=== PATIENT | male | born 1965 | race Caucasian/White ===

== ENCOUNTER 2018-10-05 14:45 | Observation (INO) | payer OTHER, SELFPAY ==
[2018-10-05] VITALS (8 sets, daily range): BP systolic 127–144; BP diastolic 63–84; PULSE 90–105; RESP 15–22; TEMP 37.2–39.1; O2SAT 99–100; BMI 30.8; BMI 31.6
--- NOTE | 2018-10-05 | DI.RAD.S_ITS ---
PROCEDURE: XR CHEST 2V INDICATIONS: Fever TECHNIQUE: 2 views of the chest were acquired. COMPARISON: None. FINDINGS: Surgical changes and devices: None. Lungs and pleura: No pleural effusions or pneumothorax. Lungs are clear. Mediastinum: Mediastinal contours are normal. Heart size is normal. Bones and chest wall: No suspicious bony abnormalities. Soft tissues appear unremarkable. IMPRESSION: 1. No acute cardiopulmonary disease. Dictated by: Hong Lugo M.D. on 10/05/2018 at 21:24 Approved by: Hong Lugo M.D. on 10/05/2018 at 21:24
[2018-10-05] MEDS: SODIUM CHLORIDE 0.9% 1,000 ML 1000 ML IV ×3 (15:09→17:27)
[2018-10-05] MEDS: ONDANSETRON 4 MG/2 ML INJ IV ×3 (15:09→22:27)
[2018-10-05 15:22] LABS: Alanine Aminotransferase 25 IU/L (21-72); Albumin 4.9 g/dL (3.5-5.0); Albumin Globulin Ratio 1.8 (1.0-2.8); Alkaline Phosphatase 48 U/L (38-126); Aspartate Aminotransferase 35 IU/L (17-59); BUN Creatinine Ratio 16.7 (6-22); Bilirubin Total 1.2 mg/dL (0.2-1.3); Blood Urea Nitrogen 15 mg/dL (9-20); Calcium 9.5 mg/dL (8.4-10.2); Carbon Dioxide 23 mmol/L (22-32); Chloride 96 mmol/L (98-107); Estimated Glomerular Filt Rate > 60.0 mL/min (>60); Globulin 2.7 g/dL (1.7-4.1); Glucose 162 mg/dL (70-100); HEMOLYSIS 18 (0-50); Potassium 3.8 mmol/L (3.4-5.1); Sodium 137 mmol/L (137-145); Total Protein 7.6 g/dL (6.3-8.2)
[2018-10-05 15:25] LABS: Eosinophils Percent Auto 0.1 % (2-4)
--- NOTE | 2018-10-05 16:04 | ED_ITS ---
HPI - Nausea/Vomiting/Diarrhea General Chief complaint: Nausea/Vomiting/Diarrhea Stated complaint: thinks Flu Time Seen by Provider: 10/05/18 15:49 Source: patient Mode of arrival: ambulatory Limitations: no limitations History of Present Illness HPI Narrative: Patient is a 53-year-old male who presents with nausea vomiting diarrhea. He says it has been ongoing for last 18 hr. He cannot hold anything down. He is febrile tachycardic here in the ED. His grandson and someone else also has the same symptoms however they did not get as bad. He denies any recent traveling no bloody diarrhea or hematemesis. Patient also on methadone 3 times a day for pain control. He has not been able to keep any medications down for the last day or so. He was also little dizzy and lightheaded just overall not feeling well. Body aches. MD complaint: nausea, vomiting, diarrhea and abdominal pain Related Data Home Medications Medication Instructions Recorded Confirmed hydrochlorothiazide 12.5 mg PO DAILY 10/05/18 10/05/18 lisinopril 20 mg PO DAILY 10/05/18 10/05/18 methadone 20 mg PO Q6H 10/05/18 10/05/18 verapamil 180 mg PO DAILY 10/05/18 10/05/18 Allergies Allergy/AdvReac Type Severity Reaction Status Date / Time No Known Drug Allergies Allergy Verified 10/05/18 14:52 Review of Systems Review of Systems GENERAL: + fever, +body aches HEENT: Denies sinus pain, ear pain, sore throat, difficulty swallowing, neck pain RESPIRATORY: Denies dyspnea, cough, wheezing, hemoptysis, sputum. CARDIOVASCULAR: Denies chest pain, palpitations, orthopnea, edema GASTROINTESTINAL: See HPI. : Denies dysuria, frequency, incontinence, hematuria, urinary retention, flank pain. MUSCULOSKELETAL: Denies weakness, joint pain, or bony pain SKIN: No rash, no erythema, no pruritus NEUROLOGIC: Denies weakness, dizziness, headache, numbness, change in speech, confusion PSYCHIATRIC: No concerning psychosocial issues. 12 point review of systems is negative except for those stated above and HPI PFSH Medical History Chronic pain (Acute) Hypertension (Acute) Social History Smoking Status: Former smoker Exam Initial Vital Signs Initial Vital Signs: Vital Signs Temperature 102.3 F H 10/05/18 14:48 Pulse Rate 105 H 12/09/18 14:48 Respiratory Rate 22 10/05/18 14:48 Blood Pressure 137/84 10/05/18 14:48 Pulse Oximetry 100 10/05/18 14:48 GENERAL: Appears ill HEENT: Head atraumatic,EOMI, pupils reactive dry mucous membranes CARDIOVASCULAR: Regular rate and rhythm without murmurs, rubs or gallops. RESPIRATORY: Breath sounds equal bilaterally, no wheezes rales or rhonchi. ABDOMEN: Soft, nontender. Normoactive bowel sounds all 4 quadrants. No guarding or rebound. EXTREMITIES: Normal range of motion, no clubbing or edema. Neurovascularly intact NEUROLOGICAL: Alert and oriented x4.Normal gait and speech. Cranial nerves II through XII grossly intact. SKIN: Warm, dry, no laceration, no petechiae, no rashes or lesions. Course Orders Ordered: ED Orders 10/05/18 15:00 Blood Culture Stat Comprehensive Metabolic Panel Stat Lipase Stat 10/05/18 15:33 Influenza A and B by PCR Rapid Stat 10/05/18 17:04 Complete Blood Count AUTO DIFF Stat 10/05/18 17:05 Lactate (Lactic Acid) Stat 10/05/18 18:52 GI Panel Stat Sodium Chloride (Normal Saline 0.9%) 1,000 mls @ 1,000 mls/hr IV BOLUS PRN PRN Reason: Fluid replacement Last Infusion: 10/05/18 18:34 Dose: 0 mls/hr Admin: 10/05/18 17:27 Dose: 1,000 mls/hr Discontinued Medications Hydromorphone HCl (Dilaudid) 1 mg IV NOW ONE Stop: 10/05/18 16:39 Last Admin: 10/05/18 16:44 Dose: 1 mg Sodium Chloride (Normal Saline 0.9%) 1,000 mls @ 1,000 mls/hr IV BOLUS ONE Stop: 10/05/18 16:07 Last Infusion: 10/05/18 16:18 Dose: 0 mls/hr Admin: 10/05/18 15:09 Dose: 1,000 mls/hr Sodium Chloride (Normal Saline 0.9%) 1,000 mls @ 1,000 mls/hr IV BOLUS ONE Stop: 10/05/18 16:56 Last Infusion: 10/05/18 17:18 Dose: 0 mls/hr Admin: 10/05/18 16:11 Dose: 1,000 mls/hr Lactated Ringer's (Lactated Ringers) 1,000 mls @ 1,000 mls/hr IV BOLUS ONE Stop: 10/05/18 18:32 Last Infusion: 10/05/18 18:38 Dose: 0 mls/hr Admin: 10/05/18 17:40 Dose: 1,000 mls/hr Ketorolac Tromethamine (Toradol) 30 mg IV NOW ONE Stop: 10/05/18 15:58 Last Admin: 10/05/18 16:10 Dose: 30 mg Metoclopramide HCl (Reglan) 10 mg IV NOW ONE Stop: 10/05/18 17:35 Last Admin: 10/05/18 17:40 Dose: 10 mg Morphine Sulfate (Morphine) 4 mg IV NOW ONE Stop: 10/05/18 15:58 Last Admin: 10/05/18 16:10 Dose: 4 mg Ondansetron HCl (Zofran) 4 mg IV NOW ONE Stop: 10/05/18 15:08 Last Admin: 10/05/18 15:09 Dose: 4 mg Ondansetron HCl (Zofran) 4 mg IV NOW ONE Stop: 10/05/18 16:07 Last Admin: 10/05/18 16:10 Dose: 4 mg Pantoprazole Sodium (Protonix) 40 mg IV NOW ONE Stop: 10/05/18 15:58 Last Admin: 10/05/18 16:10 Dose: 40 mg Vital Signs - 8 hr 10/05/18 14:48 10/05/18 15:30 10/05/18 16:30 Temperature 102.3 F H Pulse Rate 105 H 97 H 95 H Respiratory Rate 22 Blood Pressure 137/84 Blood Pressure [Left Arm] 136/65 127/70 Pulse Oximetry 100 100 100 10/05/18 17:10 10/05/18 17:11 10/05/18 18:00 Temperature 99.0 F 99.0 F Pulse Rate 94 H 91 H Respiratory Rate 15 Blood Pressure Blood Pressure [Left Arm] 127/70 128/63 Pulse Oximetry 100 10/05/18 19:02 Temperature Pulse Rate 90 Respiratory Rate 20 Blood Pressure 128/65 Blood Pressure [Left Arm] Pulse Oximetry 100 MDM - Nausea/Vomiting/Diarrhea Lab Data Attestation: I reviewed the patient's lab results. Result diagrams: 10/05/18 17:04 10/05/18 15:00 Lab Results 10/05/18 10/05/18 10/05/18 Range/Units 15:00 15:00 15:33 WBC (4.5-11.0) X10^3/uL RBC (4.5-5.9) X10^6/uL Hgb (13.5-17.5) g/dL Hct (41-53) % MCV (80-100) fL MCH (26-34) PG MCHC (30-36) % RDW (11.6-14.8) % Plt Count (150-400) X10^3/uL Neut % (Auto) (50-75) % Lymph % (Auto) (25-40) % [place] % (Auto) (3-14) % Eos % (Auto) (2-4) % Baso % (Auto) (0-2) % Neut # (Auto) (1897-3470) /uL Sodium 137 (137-145) mmol/L Potassium 3.8 (3.4-5.1) mmol/L Chloride 96 L (98-107) mmol/L Carbon Dioxide 23 (22-32) mmol/L BUN 15 (9-20) mg/dL Creatinine 0.90 (0.66-1.25) mg/dL Estimated GFR > 60.0 (>60) mL/min BUN/Creatinine Ratio 16.7 (6-22) Glucose 162 H (70-100) mg/dL Lactate (0.7-2.1) mmol/L Calcium 9.5 (8.4-10.2) mg/dL Total Bilirubin 1.2 (0.2-1.3) mg/dL AST 35 (17-59) IU/L ALT 25 (21-72) IU/L Alkaline Phosphatase 48 (38-126) U/L Total Protein 7.6 (6.3-8.2) g/dL Albumin 4.9 (3.5-5.0) g/dL Globulin 2.7 (1.7-4.1) g/dL Albumin/Globulin Ratio 1.8 (1.0-2.8) Lipase 21 L (23-300) U/L Influenza A & B (PCR) Negative (Negative) 10/05/18 10/05/18 Range/Units 17:04 17:05 WBC 11.6 H (4.5-11.0) X10^3/uL RBC 5.27 (4.5-5.9) X10^6/uL Hgb 16.5 (13.5-17.5) g/dL Hct 47.5 (41-53) % MCV 90.1 (80-100) fL MCH 31.3 (26-34) PG MCHC 34.7 (30-36) % RDW 13.6 (11.6-14.8) % Plt Count 173 (150-400) X10^3/uL Neut % (Auto) 89.7 H (50-75) % Lymph % (Auto) 4.7 L (25-40) % [place] % (Auto) 5.3 (3-14) % Eos % (Auto) 0.1 L (2-4) % Baso % (Auto) 0.2 (0-2) % Neut # (Auto) 55942 H (9202-1322) /uL Sodium (137-145) mmol/L Potassium (3.4-5.1) mmol/L Chloride (98-107) mmol/L Carbon Dioxide (22-32) mmol/L BUN (9-20) mg/dL Creatinine (0.66-1.25) mg/dL Estimated GFR (>60) mL/min BUN/Creatinine Ratio (6-22) Glucose (70-100) mg/dL Lactate 3.2 H (0.7-2.1) mmol/L Calcium (8.4-10.2) mg/dL Total Bilirubin (0.2-1.3) mg/dL AST (17-59) IU/L ALT (21-72) IU/L Alkaline Phosphatase (38-126) U/L Total Protein (6.3-8.2) g/dL Albumin (3.5-5.0) g/dL Globulin (1.7-4.1) g/dL Albumin/Globulin Ratio (1.0-2.8) Lipase (23-300) U/L Influenza A & B (PCR) (Negative) Urine Dip Bedside Urine Glucose Negative Bedside Urine Bilirubin + 1 Bedside Urine Ketone +/- 5 Urine Specific [place] 1.015 Bedside Urine Occult Blood - Negative Bedside Urine pH 7.0 Bedside Urine Protein +/- 15 Bedside Urine Urobilinogen - Negative Bedside Urine Nitrite - Negative Bedside Urine Leukocytes - Negative Esterase MDM Narrative Medical decision making narrative: Unable to get lactic acid until after 1.5 L of fluid. It is elevated. He does feel better and looked a little better however still extremely nauseated he has been given Reglan, Protonix 2 doses of Zofran. Some of this may be withdrawal as well from opiates. However other people of also currently been sick. He is also noted to have fever initially on arrival. He was able to give us a stool sample which has been sent for a GI panel. Denys accepts. Discharge Plan Departure Patient Disposition: Admitted as Observation Clinical Impression: Intractable vomiting, Gastroenteritis Interventions: ED Discharge Assessment Last Done: 10/05/18 19:02
[2018-10-05] MEDS: KETOROLAC 60 MG/2 ML VIAL 30 MG IV (16:10)
[2018-10-05] MEDS: PANTOPRAZOLE 40 MG VIAL IV (16:10)
[2018-10-05] MEDS: MORPHINE 4 MG/ML INJ IV (16:10)
[2018-10-05 16:14] LABS: Lipase 21 U/L (23-300)
[2018-10-05 16:20] LABS: Influenza A and B by PCR Rapid Negative (Negative)
[2018-10-05] MEDS: HYDROMORPHONE 1 MG INJ IV (16:44)
--- NOTE | 2018-10-05 16:45 | PC.NURSE ---
Attempted to draw labs, unsuccessful. will try again
[2018-10-05 17:19] LABS: Add Manual Diff / Slide Review NO; Basophils Percent Auto 0.2 % (0-2); Hematocrit 47.5 % (41-53); Hemoglobin 16.5 g/dL (13.5-17.5); Lymphocytes Percent Auto 4.7 % (25-40); Mean Corpuscular HGB Conc 34.7 % (30-36); Mean Corpuscular Hemoglobin 31.3 PG (26-34); Mean Corpuscular Volume 90.1 fL (80-100); Monocytes Percent Auto 5.3 % (3-14); Neutrophils Absolute Auto 10400 /uL (3000-5900); Neutrophils Percent Auto 89.7 % (50-75); Platelet Count 173 X10^3/uL (150-400); Red Blood Cell Count 5.27 X10^6/uL (4.5-5.9); Red Cell Distribution Width 13.6 % (11.6-14.8); White Blood Cell Count 11.6 X10^3/uL (4.5-11.0)
[2018-10-05 17:23] LABS: Lactate (Lactic Acid) 3.2 mmol/L (0.7-2.1)
[2018-10-05] MEDS: LACTATED RINGERS 1,000 ML 1000 ML IV (17:40)
[2018-10-05] MEDS: METOCLOPRAMIDE 10 MG/2 ML INJ IV (17:40)
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
[2018-10-05 20:56] LABS: Adenovirus F 40/41 Not Detected (Not Detect); Astrovirus Not Detected (Not Detect); Campylobacter Not Detected (Not Detect); Clostridium difficile toxin AB Detected (Not Detect); Cryptosporidium Not Detected (Not Detect); Cyclospora cayetanensis Not Detected (Not Detect); Entamoeba histolytica Not Detected (Not Detect); Enteroaggregative E.coli Not Detected (Not Detect); Enteropathogenic E.coli Not Detected (Not Detect); Enterotoxigenic E.coli It/st Not Detected (Not Detect); Giardia lamblia Not Detected (Not Detect); Norovirus GI/GII Detected (Not Detect); Plesiomonsa shigelloides Not Detected (Not Detect); Rotavirus A Not Detected (Not Detect); Salmonella Not Detected (Not Detect); Sapovirus Not Detected (Not Detect); Shiga-like toxin-prod E.coli Not Detected (Not Detect); Shigella/Enteroinvasive E.coli Not Detected (Not Detect); Vibrio Not Detected (Not Detect); Vibrio cholerae Not Detected (Not Detect); Yersinia enterocolitica Not Detected (Not Detect)
[2018-10-05 21:12] LABS: Reflexed Lactate in 2 Hours Y
[2018-10-05 21:40] LABS: Lactate 2HR (Lactic Acid Rflx) 1.3 mmol/L (0.7-2.1)
[2018-10-05] MEDS: SODIUM CHLORIDE 0.9% 1,000 ML 100 ML IV (22:26)
[2018-10-05] MEDS: VANCOMYCIN 125 MG CAPSULE PO (22:26)
[2018-10-05] MEDS: HEPARIN 5,000 UNIT/ML VIAL 5000 UNIT SUBCUT (22:26)
[2018-10-05] MEDS: HYDROMORPHONE 0.5 MG INJ IV (22:27)
[2018-10-05] MEDS: fentaNYL 50 MCG/PATCH TOP (22:28)
[2018-10-06] VITALS (9 sets, daily range): BP systolic 139–150; BP diastolic 75–86; PULSE 93–100; RESP 16–18; TEMP 36.8–37.3; O2SAT 95–100
--- NOTE | 2018-10-06 04:36 | PC.NURSE ---
Shift: Pt reports onset of migraine and prior hx of migraines though not noted in medical history section. Pt requested medication for his migraines and that he has something he normally takes at home for migraines. Upon further questioning and suggestion of common migraine medications, pt reports that he takes sumatriptan but is unaware of the dosage. Medication is not listed under home meds. This RN asked pt if he needed this medication urgently and offered pain medication off MAR but pt declined and said that he could wait til the morning. Pt requests that migraine medication be ordered and added to his MAR and Home Med list. This RN added Migraines to his problem list.
[2018-10-06 06:13] LABS: Add Manual Diff / Slide Review NO; Basophils Percent Auto 0.2 % (0-2); Eosinophils Percent Auto 0.2 % (2-4); Hematocrit 43.5 % (41-53); Hemoglobin 14.9 g/dL (13.5-17.5); Lymphocytes Percent Auto 11.4 % (25-40); Mean Corpuscular HGB Conc 34.3 % (30-36); Mean Corpuscular Hemoglobin 31.4 PG (26-34); Mean Corpuscular Volume 91.5 fL (80-100); Monocytes Percent Auto 9.5 % (3-14); Neutrophils Absolute Auto 7200 /uL (3000-5900); Neutrophils Percent Auto 78.7 % (50-75); Platelet Count 138 X10^3/uL (150-400); Red Blood Cell Count 4.75 X10^6/uL (4.5-5.9); White Blood Cell Count 9.2 X10^3/uL (4.5-11.0)
[2018-10-06 06:35] LABS: BUN Creatinine Ratio 16.3 (6-22); Blood Urea Nitrogen 13 mg/dL (9-20); Calcium 7.8 mg/dL (8.4-10.2); Carbon Dioxide 25 mmol/L (22-32); Chloride 103 mmol/L (98-107); Estimated Glomerular Filt Rate > 60.0 mL/min (>60); Glucose 113 mg/dL (70-100); HEMOLYSIS < 15 (0-50); Magnesium 1.5 mg/dL (1.6-2.3); Potassium 3.6 mmol/L (3.4-5.1); Sodium 139 mmol/L (137-145)
[2018-10-06 06:36] LABS: Hemoglobin A1C% w Est Avg Glu 6.9 % (4.0-6.0)
[2018-10-06] MEDS: SUMAtriptan 20 MG SPRAY NASAL ×2 (07:56→09:41)
[2018-10-06] MEDS: VANCOMYCIN 125 MG CAPSULE PO ×3 (09:41→16:38)
[2018-10-06] MEDS: HEPARIN 5,000 UNIT/ML VIAL 5000 UNIT SUBCUT (09:41)
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
[2018-10-06] MEDS: CODEINE 30 MG TABLET PO (12:08)
[2018-10-06] MEDS: DEXAMETHASONE 10 MG/ML VIAL 8 MG IV (12:09)
[2018-10-06] MEDS: PROMETHAZINE 25 MG TABLET PO (12:09)
== END 2018-10-06 17:10 | disposition home or self-care (01) | DRG 372 ==
LOC: ED 18:51 → AC 10-06 07:09
PROVIDERS: Admitting Provider Nurse Practitioner Gerontology; Emergency Provider Emergency Medicine; Visit Provider Nurse Practitioner Gerontology
DX: A04.72 Enterocolitis due to Clostridium difficile, not specified as recurrent (principal); R11.2 Nausea with vomiting, unspecified; F11.20 Opioid dependence, uncomplicated; I10 Essential (primary) hypertension; E11.9 Type 2 diabetes mellitus without complications; Z87.891 Personal history of nicotine dependence; G89.29 Other chronic pain; R19.7 Diarrhea, unspecified; A08.11 Acute gastroenteropathy due to Norwalk agent
CPT/HCPCS: 36415; 36591; 71046; 80048; 80053; 80321; 81003; 82962; 83036; 83605; 83690; 83735; 85025; 87040; 87400; 87507; 96361; 96374; 96375; 96376; 99284; 99285; G0378; C9113; J1100; J1170; J1644; J1885; J2270; J2405; J2765

== ENCOUNTER → 2023-08-15 13:12 | Outpatient (CLI) | payer OTHER, SELFPAY ==
[2018-10-05 19:49] VITALS: BMI 31.6
--- NOTE | 2023-08-15 | DI.MRI.S_ITS ---
PROCEDURE: MR CERVICAL SPINE WO CON INDICATIONS: Spinal stenosis, cervical region TECHNIQUE: Noncontrast sagittal T1 spin echo and T2 fast spin echo, sagittal STIR, foraminal oblique sagittal T2 fast spin echo, and axial gradient echo or T2 fast spin echo through the cervical spine. COMPARISON: None. FINDINGS: Image quality: Excellent. Alignment and Curvature: There is normal bony alignment. Bone Marrow: C4-5 interbody fusion without instrumentation. Spinal Cord: Visualized spinal cord has normal size and signal. No cerebellar tonsillar herniation. Paraspinous Soft Tissues: No paravertebral masses. Prevertebral soft tissues are normal in thickness. C2-C3: Normal appearance. C3-C4: Disc space narrowing with large posterior disc osteophyte complex and hypertrophic uncovertebral joints results in severe central stenosis with flattening the ventral cord. Severe bilateral foraminal stenosis present as well. C4-C5: Discectomy and fusion with good graft incorporation. No central or foraminal stenosis. C5-C6: Disc space narrowing with large posterior disc osteophyte complex also results in severe central stenosis. Hypertrophic uncovertebral joints results in moderate bilateral foraminal stenosis. C6-C7: Disc space narrowing and posterior disc osteophyte complex associated with moderate central stenosis. Moderate bilateral foraminal stenosis. C7-T1: Disc space is slightly narrowed. Posterior disc osteophyte complex associated with moderate central stenosis. Mild left and moderate right foraminal stenosis. IMPRESSION: 1. Multilevel degenerative disc disease and arthropathy results in varying degrees of central and foraminal stenosis including severe central and foraminal stenosis C3-4 and C5-6 2. Discectomy and fusion with good graft incorporation at C4-5. No instrumentation. Approved by: Ashish Alfaro M.D. on 08/15/2023 at 17:09
== END ==
PROVIDERS: PCP Physician Assistant; Referring Provider Physician Assistant; Visit Provider Physician Assistant
DX: M48.02 Spinal stenosis, cervical region (principal); M51.36 Other intervertebral disc degeneration, lumbar region; M48.061 Spinal stenosis, lumbar region without neurogenic claudication; M47.812 Spondylosis without myelopathy or radiculopathy, cervical region; Z98.1 Arthrodesis status
CPT/HCPCS: 72141

== ENCOUNTER → 2024-01-03 16:08 | Outpatient (CLI) | payer OTHER, SELFPAY ==
[2018-10-05 19:49] VITALS: BMI 31.6
--- NOTE | 2024-01-03 | DI.CT.S_ITS ---
PROCEDURE: CT CERVICAL SPINE WO CON INDICATIONS: Cervicalgia TECHNIQUE: Noncontrast 3 mm thick sections acquired from the skull base to the T4 level. Sagittal and coronal reformats were then constructed. For radiation dose reduction, the following was used: automated exposure control, adjustment of mA and/or kV according to patient size. COMPARISON: None. FINDINGS: Image quality: Excellent. Bones: No fractures or dislocations. Visualized superior ribs are intact. Reversal of the normal cervical lordosis. Ossification of the C4-5 disc space. Severe disc space narrowing at C5-6 and C6-7, with opposing endplate sclerosis. Moderate disc height loss at C3-4 and C7-T1. Mild disc height loss at C2-3. Moderate neural foraminal narrowing at the right side C3-4 and C5-6. Moderate neural foraminal narrowing at the left C3-4 and C6-7. Moderate spinal canal narrowing at C3-4 due to uncovertebral hypertrophy. Moderate spinal canal narrowing at C5-6 due to uncovertebral hypertrophy. Soft tissues: Prevertebral soft tissues are normal in thickness. No paravertebral hematomas. No apical pneumothoraces. IMPRESSION: Degenerative disc disease: Up to moderate spinal canal narrowing at C3-4 and C5-6. Up to moderate neural foraminal narrowing at C3-4, C5-6 and C6-7. Dictated by: Jey Singh M.D. on 01/03/2024 at 16:51 Approved by: Jey Singh M.D. on 01/03/2024 at 16:56
== END ==
LOC: CT 16:08
PROVIDERS: PCP Physician Assistant; Referring Provider Student in an Organized Health Care Education/Training Program; Visit Provider Student in an Organized Health Care Education/Training Program
DX: M48.02 Spinal stenosis, cervical region (principal); M50.30 Other cervical disc degeneration, unspecified cervical region; G95.9 Disease of spinal cord, unspecified
CPT/HCPCS: 72125